=== PATIENT | male | born 1970 | race Hispanic/Latino ===

== ENCOUNTER 2025-04-02 08:51 | Day surgery (SDC) | payer OTHER ==
[2025-04-02] MEDS: Ringers Lactate 1,000 ML IV ONE (10:05)
[2025-04-02] MEDS ORDERED: LIDOCAINE 1% MPF 5 ML VIAL ONE (11:02)
[2025-04-02 11:30] VITALS: O2SAT 97
[2025-04-02 11:35] VITALS: BP 126/78; TEMP 98.4
== END 2025-04-02 11:24 | disposition home or self-care (01) ==
LOC: OR 08:51
PROVIDERS: ATTEND Internal Medicine Gastroenterology
PROC: 0DBL8ZX Excision of Transverse Colon, Via Natural or Artificial Opening Endoscopic, Diagnostic (ICD-10-PCS; principal; 2025-04-02 10:30)
DX: Z12.11 Encounter for screening for malignant neoplasm of colon (principal); K64.8 Other hemorrhoids
CPT/HCPCS: 93005; 88305; 45380; J2704; J2003; J7120